=== PATIENT | male | born 1975 | race Caucasian/White ===

== ENCOUNTER 2024-11-04 16:09 | Outpatient (CLI) | payer OTHER, SELFPAY ==
[2024-11-04 16:34] LABS: Basophils Absolute Auto 0.1 K/mm3 (0.0-0.1); Basophils Percent Auto 1.1 % (0.2-1.2); Eosinophils Absolute Auto 0.3 K/mm3 (0-0.3); Eosinophils Percent Auto 4.1 % (0-4.4); Hematocrit 44.1 % (42.0-52.0); Hemoglobin 15.2 g/dL (14.0-18.0); Immature Granulocyte Absolute 0.06 K/mm3 (0.00-0.031); Immature Granulocyte Percent A 0.7 % (0-0.5); Lymphocytes Absolute Auto 2.07 K/mm3 (0.9-3.2); Lymphocytes Percent Auto 24.7 % (18.3-44.2); Mean Corpuscular HGB Conc 34.5 g/dl (32-36); Mean Corpuscular Hemoglobin 31.8 pg (26-34); Mean Corpuscular Volume 92.3 fl (80-100); Mean Platelet Volume 9.6 fl (7.4-10.4); Monocytes Absolute Auto 0.7 K/mm3 (0.1-0.6); Monocytes Percent Auto 8.6 % (2.6-8.5); Neutrophils Absolute Auto 5.1 K/mm3 (1.3-6.7); Neutrophils Percent Auto 60.8 % (45.5-73.1); Platelet Count Result 273 k/mm3 (150-375); Red Blood Count 4.78 M/mm3 (4.6-6.20); Red Cell Distribution Width 11.7 % (11.5-14.5); White Blood Count 8.4 K/mm3 (4.5-10.0)
[2024-11-04 17:14] LABS: Alanine Aminotransferase 33 U/L (6-50); Albumin Level 4.4 g/dL (3.5-5.1); Alkaline Phosphatase 56 U/L (38-126); Anion Gap 7 mmol/L (4-12); Aspartate Amino Transferase 28 U/L (17-59); Bilirubin,Total 1.5 mg/dL (0.2-1.3); Blood Urea Nitrogen 22 mg/dL (9-20); Calcium 9.2 mg/dL (8.4-10.2); Carbon Dioxide 30 mmol/L (22-30); Chloride 103 mmol/L (98-107); Estimated Glomerular Filt Rate > 60; Glucose 97 mg/dL (65-110); Potassium 4.3 mmol/L (3.4-5.0); Sodium 140 mmol/L (137-145); Uric Acid 8.1 mg/dL (3.5-8.5)
--- OUTSIDE RECORDS SUMMARY | 2024-11-04 17:32 | XMS_ITS | Clinical Summary ---
Author Organization [address] Address [address] [place] [address] Care Team Providers Care Environmental Services Supervisor Name Role Phone Evangelista Toledo MD Primary Care Provider + Allergies No known active allergies Medications albuterol HFA (PROVENTIL HFA,VENTOLIN HFA,PROAIR HFA) 90 mcg/actuation inhaler Inhale 2 puffs 4 (four) times a day Active predniSONE (DELTASONE) 20 mg tabletIndicatio ns:Right foot pain Take 1 tablet (20 mg) by mouth 2 (two) times a day for 5 days 10 tablet 10/27/2024 Active Problems No known active problems Encounters Date Type Department Care Team Description 10/27/2024 8:15 AM PATIENT LIAISON Office Visit [facility] [address] [place] [address] Mary Piedra NP Right foot pain (Primary Dx) from Last 3 Months Social History Tobacco Use Types Packs/Day Years Used Date Smoking Tobacco: Never Assessed Alcohol Use Standard Drinks/Week Comments Yes 0 (1 standard drink = 0.6 oz pur e alcohol) Sex and Gender Information Value Date Recorded Sex Assigned at Not on file Legal Sex Male 10:44 AM PATIENT LIAISON Gender Identity Not on file Sexual Orientation Not on file Obstetrics History Last Filed Vital Signs Vital Sign Reading Time Taken Comments Blood Pressure 140/92 10/27/2024 8:25 AM PATIENT LIAISON Pulse 91 10/27/2024 8:25 AM PATIENT LIAISON Temperature 36.4 C (97.5 F) 10/27/2024 8:25 AM PATIENT LIAISON Respiratory Rate 17 10/27/2024 8:25 AM PATIENT LIAISON Oxygen Saturation 98% 10/27/2024 8:25 AM PATIENT LIAISON Inhaled Oxygen Concentration - - Weight 81.6 kg (180 lb) 10/27/2024 8:25 AM PATIENT LIAISON Height 177.8 cm (5' 10 ) 10/27/2024 8:25 AM PATIENT LIAISON Body Mass Index 25.83 10/27/2024 8:25 AM PATIENT LIAISON Plan of Treatment Health Maintenance Due Date Last Done Comments Colon Cancer Screening-Colonoscopy 1976 Depression Screening 1976 Hepatitis C Screening 1976 DTaP/Tdap/Td Vaccine (1 - Tdap) 1987 Hepatitis B Screening 1994 Regular Well Visit/Exam 18-64 1994 Influenza Vaccine (#1) 2024 Pneumococcal vaccine <65 Aged Out No longer eligible based on patient's age to complete this topic Insurance [facility] [place] [address] [facility] PL[facility] Care Teams Environmental Services Supervisor Relationship Specialty Start Date End Date Evangelista Toledo MD [address] [place] [address] PCP - General 07/07/12
--- OUTSIDE RECORDS SUMMARY | 2024-11-04 17:32 | XMS_ITS | Referral Summary ---
Author Organization [facility] [address] [facility] Address [address] [place] [address] Care Team Providers Care Case Mgr Name Role Phone Evangelista Toledo MD Primary Care Provider + Encounters Date Type Department Care Team Description 10/27/2024 8:15 AM MANAGER OF CORPORATE Office Visit [facility] [place] [address] [address] Mary Piedra NP Right foot pain (Primary Dx) from Last 3 Months Allergies No known active allergies Medications albuterol HFA (PROVENTIL HFA,VENTOLIN HFA,PROAIR HFA) 90 mcg/actuation inhaler Inhale 2 puffs 4 (four) times a day Active predniSONE (DELTASONE) 20 mg tabletIndicatio ns:Right foot pain Take 1 tablet (20 mg) by mouth 2 (two) times a day for 5 days 10 tablet 10/27/2024 Active Problems No known active problems Social History Tobacco Use Types Packs/Day Years Used Date Smoking Tobacco: Never Assessed Alcohol Use Standard Drinks/Week Comments Yes 0 (1 standard drink = 0.6 oz pur e alcohol) Sex and Gender Information Value Date Recorded Sex Assigned at Not on file Legal Sex Male 10:44 AM MANAGER OF CORPORATE Gender Identity Not on file Sexual Orientation Not on file Last Filed Vital Signs Vital Sign Reading Time Taken Comments Blood Pressure 140/92 10/27/2024 8:25 AM MANAGER OF CORPORATE Pulse 91 10/27/2024 8:25 AM MANAGER OF CORPORATE Temperature 36.4 C (97.5 F) 10/27/2024 8:25 AM MANAGER OF CORPORATE Respiratory Rate 17 10/27/2024 8:25 AM MANAGER OF CORPORATE Oxygen Saturation 98% 10/27/2024 8:25 AM MANAGER OF CORPORATE Inhaled Oxygen Concentration - - Weight 81.6 kg (180 lb) 10/27/2024 8:25 AM MANAGER OF CORPORATE Height 177.8 cm (5' 10 ) 10/27/2024 8:25 AM MANAGER OF CORPORATE Body Mass Index 25.83 10/27/2024 8:25 AM MANAGER OF CORPORATE Plan of Treatment Not on file Insurance [facility] PLUS [facility] PL[facility] Care Teams Case Mgr Relationship Specialty Start Date End Date Evangelista Toledo MD [address] [place] [address] [place], [place] [id number] PCP - General 07/07/12
== END 2024-11-04 16:10 | disposition home or self-care (01) ==
LOC: ANHLAB 16:10
PROVIDERS: PCP Family Medicine; Visit Provider Nurse Practitioner Family
DX: M25.50 Pain in unspecified joint (principal); R73.09 Other abnormal glucose; Z13.220 Encounter for screening for lipoid disorders; Z13.29 Encounter for screening for other suspected endocrine disorder; R53.83 Other fatigue
CPT/HCPCS: 36415; 80053; 84443; 84550; 85025

== ENCOUNTER 2025-04-22 10:45 | Outpatient (CLI) | payer OTHER, SELFPAY ==
--- NOTE | ~2025-04-22 | XR_ITS ---
XR lumbar spine 6V w bending 04/22/2025 11:10 Indication: Low back pain Procedure: 7 views lumbar spine Comparison: No prior studies for comparison. Findings: There is disc narrowing at L4-5 and L5-S1. There is no evidence for spondylolysis or spondylolisthesis. There is facet hypertrophy at L5-S1. No acute fracture or traumatic malalignment. Pedicles intact. Sacral foramen are symmetric. Impression: 1: Moderate lumbar spondylosis. Reviewed, dictated and finalized at location O. Impression: 1: Moderate lumbar spondylosis.
--- OUTSIDE RECORDS SUMMARY | 2025-04-22 10:54 | XMS_ITS | Clinical Summary ---
Author Organization [facility] [address] [facility] Address [address] [place] [address] Care Team Providers Care Student Finance Specialist Name Role Phone Evangelista Toledo MD Primary Care Provider + Allergies No known active allergies Medications albuterol HFA (PROVENTIL HFA,VENTOLIN HFA,PROAIR HFA) 90 mcg/actuation inhaler Inhale 2 puffs 4 (four) times a day Active Active Problems No known active problems Social History Tobacco Use Types Packs/Day Years Used Date Smoking Tobacco: Never Assessed Alcohol Use Standard Drinks/Week Comments Yes 0 (1 standard drink = 0.6 oz pur e alcohol) Sex and Gender Information Value Date Recorded Sex Assigned at Not on file Legal Sex Male 10:44 AM CHARTING CLERK Gender Identity Not on file Sexual Orientation Not on file Obstetrics History Last Filed Vital Signs Vital Sign Reading Time Taken Comments Blood Pressure 140/92 10/27/2024 8:25 AM CHARTING CLERK Pulse 91 10/27/2024 8:25 AM CHARTING CLERK Temperature 36.4 C (97.5 F) 10/27/2024 8:25 AM CHARTING CLERK Respiratory Rate 17 10/27/2024 8:25 AM CHARTING CLERK Oxygen Saturation 98% 10/27/2024 8:25 AM CHARTING CLERK Inhaled Oxygen Concentration - - Weight 81.6 kg (180 lb) 10/27/2024 8:25 AM CHARTING CLERK Height 177.8 cm (5' 10) 10/27/2024 8:25 AM CHARTING CLERK Body Mass Index 25.83 10/27/2024 8:25 AM CHARTING CLERK Plan of Treatment Health Maintenance Due Date Last Done Comments Colon Cancer Screening-Colonoscopy 1976 Depression Screening 1976 Hepatitis C Screening 1976 DTaP/Tdap/Td Vaccine (1 - Tdap) 1987 Hepatitis B Screening 1994 Regular Well Visit/Exam 18-64 1994 Influenza Vaccine (#1) 2025 Pneumococcal vaccine <65 Aged Out No longer eligible based on patient's age to complete this topic Insurance [facility] [employer] Care Teams Student Finance Specialist Relationship Specialty Start Date End Date Evangelista Toledo MD [address] [place] [address] [place] [id number] [facility] - General 07/07/12
== END 2025-04-22 10:46 | disposition home or self-care (01) ==
LOC: ANHIMG 10:51
PROVIDERS: PCP Nurse Practitioner Family; Visit Provider Nurse Practitioner Family
DX: M47.816 Spondylosis without myelopathy or radiculopathy, lumbar region (principal)
CPT/HCPCS: 72114